=== PATIENT | male | born 1955 | race African-American/Black ===

== ENCOUNTER 2017-08-28 07:51 | Emergency (ER) | payer OTHER ==
[~2017-08-28] VITALS: Ht 182.9 cm; Wt 87.1 kg
[2017-08-28] MEDS ORDERED: NABUMETONE750 MG PO (12:49)
[2017-08-28] MEDS ORDERED: NORFLEX100MG PO (12:49)
== END 2017-08-28 13:58 | disposition home or self-care (01) ==
LOC: ER 07:51
DX: M54.2 Cervicalgia (principal)

== ENCOUNTER 2020-04-26 07:03 | Emergency (ER) | payer OTHER ==
[~2020-04-26] VITALS: Ht 182.9 cm; Wt 86.2 kg
[~2020-04-26 07:03] MED LIST: NABUMETONE750 MG PO; NORFLEX100MG PO
[2020-04-26] MEDS ORDERED: INTESTINEX680 M1 PO (08:37)
[2020-04-26] MEDS ORDERED: KETO10TA2 PO (08:37)
[2020-04-26] MEDS ORDERED: PEPCID AC20 MG PO (08:37)
[2020-04-26] MEDS ORDERED: AMOX1TAB5 PO (08:37)
== END 2020-04-26 08:46 | disposition home or self-care (01) ==
LOC: ER 07:03
DX: K05.00 Acute gingivitis, plaque induced (principal)

== ENCOUNTER 2021-09-27 07:23 | Emergency (ER) | payer OTHER ==
[~2021-09-27] VITALS: Ht 182.9 cm; Wt 81.2 kg
[~2021-09-27 07:23] MED LIST changes: +AMOX1TAB5 PO; +INTESTINEX680 M1 PO; +KETO10TA2 PO; +PEPCID AC20 MG PO
[2021-09-27] MEDS ORDERED: AMOX-CLAV 875-1 EACH PO (11:36)
== END 2021-09-27 11:45 | disposition home or self-care (01) ==
LOC: ER 07:23
DX: H92.01 Otalgia, right ear (principal)

== ENCOUNTER 2023-05-05 09:19 | Outpatient (CLI) | payer OTHER ==
[~2023-05-05 09:19] MED LIST changes: +AMOX-CLAV 875-1 EACH PO
== END 2023-05-05 09:26 | disposition home or self-care (01) ==
LOC: EKG 09:19
PROVIDERS: ATTEND Podiatrist Foot & Ankle Surgery
DX: I11.9 Hypertensive heart disease without heart failure (principal)